=== PATIENT | female | born 1965 | race African-American/Black ===

== ENCOUNTER 2018-10-05 08:03 | Inpatient (IN) | payer OTHER ==
--- NOTE | 2018-10-05 09:14 | HP ---
CIWA Score - Admission Criteria [facility]ASAS Guidelines: Admission for Medically Managed Detox: Requires at least one of the followin. CIWA greater than 12 2. Seizures within the past 24 hours 3. Delirium tremens within the past 24 hours 4. Hallucinations within the past 24 hours 5. Acute intervention needed for co occurring medical disorder 6. Acute intervention needed for co occurring psychiatric disorder 7. Severe withdrawal that cannot be handled at a lower level of care (continued vomiting, continued diarrhea, abnormal vital signs) requiring intravenous medication and/or fluids 8. Admission ROS S - HPI Allergies/Adverse Reactions: Allergies Allergy/AdvReac Type Severity Reaction Status Date / Time No Known Allergies Allergy Verified 10/05/18 08:19 History of Present Illness: pt here requesting rehab from crack cocaine use , reports 30$ / day since age 20 , previous visit at this facility in 2014 for etoh detox . current etoh use 1 pint /month , 3 cans / beer / month , denies cannabis use . tobacco : 1/2 ppd PMHX : htn , states had high BP went to [facility], no meds pshx : denies psych : denies meds : lisinopril 20 mg Exam Limitations: No Limitations - Ebola screening Have you traveled outside of the country in the last 21 days: No (N) Have you had contact with anyone from an Ebola affected area: No Do you have a fever: No - Review of Systems Constitutional: No Symptoms Reported, Other (fatigue) EENT: reports: Blurred Vision, Other (denies vision loss , reports intermittent blurriness) Respiratory: reports: No Symptoms reported Cardiac: reports: No Symptoms Reported GI: reports: No Symptoms Reported : reports: No Symptoms Reported Musculoskeletal: reports: No Symptoms Reported Neuro: reports: No Symptoms reported Endocrine: reports: No Symptoms Reported Psychiatric: reports: Orientated x3 Patient History - Patient Medical History Hx Anemia: Yes (NOT CURRENTLY ON SUPPLEMENT) Hx Asthma: No Hx Chronic Obstructive Pulmonary Disease (COPD): No Hx Cancer: No Hx Cardiac Disorders: No Hx Congestive Heart Failure: No Hx Hypertension: Yes Hx Hypercholesterolemia: Yes (NOT CURRENTLY ON MED) Hx Pacemaker: No HX Cerebrovascular Accident: No Hx Seizures: No Hx Dementia: No Hx Diabetes: No Hx Gastrointestinal Disorders: No Hx Liver Disease: No Hx Genitourinary Disorders: No Hx Sexually Transmitted Disorders: No Hx Renal Disease (ESRD): No Hx Thyroid Disease: No Hx Human Immunodeficiency Virus (HIV): No (NEGATIVE HX) Hx Hepatitis C: No Hx Depression: No Hx Suicide Attempt: No Hx Bipolar Disorder: No Hx Schizophrenia: No - Patient Surgical History Past Surgical History: No - PPD History Date: 10/13/14 Results: 0 MM - Reproductive History Last Menstrual Period: 08/07/08 - Smoking Cessation Smoking history: Current every day smoker Have you smoked in the past 12 months: Yes Aproximately how many cigarettes per day: 3 Hx Chewing Tobacco Use: No Initiated information on smoking cessation: No - Substances abused Crack Substance route: Smoking Frequency: Daily Amount used: 3 bags Age of first use: 20 Date of last use: 10/04/18 Family Disease History - Family Disease History Family Disease History: Other: Mother (htn ,d. unknown cause ), Brother (3, A & W ), Sister (6 , A & W ) Other Family History: no children Admission Physical Exam [facility] - Vital Signs Vital Signs: Vital Signs - 24 hr 10/05/18 08:12 Temperature 96.7 F L Pulse Rate 75 Respiratory 20 Rate Blood Pressure 177/122 H - Physical General Appearance: Yes: No Apparent Distress HEENTM: Yes: EOMI, Hearing grossly Normal, Normocephalic, Normal Voice, Other ( poor dentition , many missing teeth) Respiratory: Yes: Chest Non-Tender, Lungs Clear, Normal Breath Sounds Neck: Yes: No masses,lesions,Nodules, Trachea in good position Cardiology: Yes: Regular Rhythm, Regular Rate, S1, S2 Abdominal: Yes: Non Tender, Soft Back: Yes: Normal Inspection Musculoskeletal: Yes: full range of Motion, Gait Steady Extremities: Yes: Normal Range of Motion, Non-Tender Neurological: Yes: Fully Oriented, Alert, Normal Mood/Affect, Normal Response, Other (4/5 left UE strength states had cva in the past) Integumentary: Yes: Normal Color, Warm - Diagnostic (1) Cocaine dependence Current Visit: Yes Status: Chronic Qualifiers: Substance use status: uncomplicated Qualified Code(s): F14.20 - Cocaine dependence, uncomplicated (2) Nicotine dependence Current Visit: Yes Status: Chronic Qualifiers: Nicotine product type: cigarettes Inpatient Rehab Admission - Rehab Decision to Admit Inpatient rehab admission?: Yes - Initial Determination Are CD services needed?: Yes Free of communicable disease: Yes Not in need of hospitalization: Yes - Rehab Admission Criteria Previous failed treatment: No Poor recovery environment: Yes Comorbidities: No Lacks judgement: Yes Patient is meeting Inpatient Rehab admission criteria:: Yes
[2018-10-05] MEDS ORDERED: MENTHOL/PHENOL 1 EACH UD MM PRN (09:19)
[2018-10-05] MEDS ORDERED: IBUPROFEN 400 MG TABLET (FP) PO PRN (09:19)
[2018-10-05] MEDS ORDERED: guaiFENesin 200 MG/10 ML 10 ML UNIT-DOSE CUPS PO PRN (09:19)
[2018-10-05] MEDS ORDERED: ACETAMINOPHEN 325 MG TABLET (FP) PO PRN (09:19)
[2018-10-05] MEDS ORDERED: MAGNESIUM HYDROX 2400MG/30ML ORAL SUSPENSION 30 ML CUP PO PRN (09:19)
[2018-10-05] MEDS ORDERED: MAGNESIUM CITRATE 300 ML BOTTLE PO PRN (09:19)
[2018-10-05] MEDS ORDERED: P-EPHED 60MG/TRIPROLIDI 2.5MG TABLET PO PRN (09:19)
[2018-10-05] MEDS ORDERED: NICOTINE POLACRILEX 2 MG GUM BUC PRN (09:19)
[2018-10-05] MEDS ORDERED: LISINOPRIL 20 MG TABLET (FP) PO SCH (10:45)
[2018-10-05] MEDS: ASPIRIN COATED 81 MG TABLET.EC PO SCH (10:46)
[2018-10-05] MEDS: PRENATAL VITAMINS W/ FOLIC ACID TABLET (FP) PO SCH (10:46)
[2018-10-05 12:15] LABS: HEMATOCRIT 44.6 % (32.4-45.2); HEMOGLOBIN 14.6 GM/dL (10.7-15.3); MCH 29.3 pg (25.7-33.7); MCHC 32.8 g/dl (32.0-36.0); MEAN CELL VOLUME 89.2 fl (80-96); MEAN PLT VOLUME 8.5 fl (7.5-11.1); PLATELET COUNT 317 K/MM3 (134-434); RDW 13.9 % (11.6-15.6)
[2018-10-05 12:29] LABS: ALBUMIN 3.9 g/dl (3.4-5.0); BILIRUBIN,TOTAL 0.2 mg/dL (0.2-1); CALCIUM 9.1 mg/dL (8.5-10.1); CREATININE 0.7 mg/dL (0.55-1.3); POTASSIUM 3.9 mmol/L (3.5-5.1); TOT PROT 7.3 g/dl (6.4-8.2)
[2018-10-05] MEDS: THIAMINE HCL 100 MG TABLET (FP) PO SCH (21:56)
[2018-10-05] MEDS: MAG HYDROX/AL HYDROX/SIMETH 30 ML UNIT-DOSE CUP PO PRN (21:57)
[2018-10-05] MEDS ORDERED: MELATONIN 5 MG TABLETS PO PRN (22:00)
[2018-10-06] MEDS: MAG HYDROX/AL HYDROX/SIMETH 30 ML UNIT-DOSE CUP PO PRN ×2 (06:26→23:15)
[2018-10-06] MEDS ORDERED: amLODIPine BESYLATE 10 MG TABLET (FP) PO ONE (07:00)
--- NOTE | 2018-10-06 08:28 | PN ---
[facility] Progress Note Note: 0645 SEEN FOR C/O ASYMPTOMATIC ELEVATED B/P PER CLIENT SHE DOES NOT TAKE LISINOPRIL SHE IS ON AMLODIPINE 10 MG DAILY. 0- Vital Signs - 24 hr 10/05/18 10/05/18 10/05/18 09:05 11:05 12:27 Temperature 96.7 F L 98.1 F Pulse Rate 75 84 84 Respiratory 20 18 Rate Blood Pressure 177/122 H 170/113 H 176/119 H 10/05/18 10/05/18 10/06/18 13:39 23:12 00:30 Temperature Pulse Rate 76 76 Respiratory 18 17 Rate Blood Pressure 133/82 121/76 10/06/18 10/06/18 04:59 06:58 Temperature 97.9 F Pulse Rate 78 Respiratory 18 18 Rate Blood Pressure 182/139 H Laboratory Tests 10/05/18 10/05/18 10/05/18 09:23 09:30 09:30 WBC 4.0 RBC 5.00 Hgb 14.6 Hct 44.6 MCV 89.2 MCH 29.3 MCHC 32.8 RDW 13.9 Plt Count 317 MPV 8.5 Sodium 143 Potassium 3.9 Chloride 106 Carbon Dioxide 31 Anion Gap 6 L BUN 13 Creatinine 0.7 Est GFR (CKD-EPI)AfAm 115.45 Est GFR (CKD-EPI)NonAf 99.62 Random Glucose 64 L Calcium 9.1 Total Bilirubin 0.2 AST 10 L ALT 19 Alkaline Phosphatase 72 Total Protein 7.3 Albumin 3.9 POC Urine HCG, Qual Negative RPR Titer 10/05/18 09:30 WBC RBC Hgb Hct MCV MCH MCHC RDW Plt Count MPV Sodium Potassium Chloride Carbon Dioxide Anion Gap BUN Creatinine Est GFR (CKD-EPI)AfAm Est GFR (CKD-EPI)NonAf Random Glucose Calcium Total Bilirubin AST ALT Alkaline Phosphatase Total Protein Albumin POC Urine HCG, Qual RPR Titer Nonreactive A- HTN P- DC LISINOPRIL START AMLODIPINE 10 MG DAILY FIRST DOSE NOW
[2018-10-06] MEDS: PRENATAL VITAMINS W/ FOLIC ACID TABLET (FP) PO SCH (09:51)
[2018-10-06] MEDS: ASPIRIN COATED 81 MG TABLET.EC PO SCH (09:51)
[2018-10-06] MEDS ORDERED: cloNIDine HCL 0.1 MG TABLET PO STA (10:48)
--- NOTE | 2018-10-06 11:42 | PN ---
[facility] Progress Note (SOAP) Subjective: Elevated bp of 162/108, HR 92. Pt denies any headache, chest pain, sob, palpitations, or N/V. Objective: 10/06/18 11:39 Vital Signs 10/06/18 10/06/18 10/06/18 04:59 06:58 10:00 Temperature 97.9 F Pulse Rate 78 92 H Respiratory 18 18 Rate Blood Pressure 182/139 H 155/107 H Normal s1 s2, no murmur, or gallop Assessment: 10/06/18 11:42 Elevated BP pt is AOX3, in no acute distress Plan: clonidine 0.1mg po once, stat. recheck BP in an hour after clonidine administration. monitor BP as ordered.
[2018-10-06 12:12] LABS: EPI CELLS 19.4 /HPF (0-5/HPF); HYALINE CASTS 3 /lpf (0-8); PH,URINE 8.5 (5.0-8.0); URINE APPEARANCE CLOUDY; URINE BACTERIA 130.2 /hpf (NEGATIVE); URINE BILIRUBIN NEGATIVE (NEGATIVE); URINE COLOR YELLOW; URINE GLUCOSE (UA) NEGATIVE (NEGATIVE); URINE KETONE NEGATIVE (NEGATIVE); URINE LEUK ESTERASE 1+ (NEGATIVE); URINE NITRITE NEGATIVE (NEGATIVE); URINE PROTEIN NEGATIVE (NEGATIVE); URINE RBC 1 /hpf (0-4); URINE UROBILINOGEN 0.2 mg/dL (0.2-1.0); URINE WBC 5 /hpf (0-5)
--- NOTE | 2018-10-06 14:44 | PN ---
S Progress Note Note: Pt's repeat BP is 155/101, HR is 88. Enalapril 10mg po twice/day added to pt's treatment regimen. Enalapril 10mg po first dose now. CHRYSTAL Mao made aware.
[2018-10-06] MEDS: ENALAPRIL MALEATE 10 MG TABLET (FP) PO SCH ×2 (15:57→22:25)
[2018-10-06] MEDS: THIAMINE HCL 100 MG TABLET (FP) PO SCH (22:25)
[2018-10-06] MEDS ORDERED: PT OWN MED DRAWER 7, Y5N ONE (23:22)
[2018-10-07 06:51] VITALS: TEMP 97.8
[2018-10-07] MEDS ORDERED: PT OWN MED DRAWER 7, Y5N ONE (08:30)
[2018-10-07] MEDS ORDERED: amLODIPine BESYLATE 10 MG TABLET (FP) PO SCH (10:00)
[2018-10-07] MEDS: ENALAPRIL MALEATE 10 MG TABLET (FP) PO SCH (10:31)
[2018-10-07] MEDS: PRENATAL VITAMINS W/ FOLIC ACID TABLET (FP) PO SCH (10:31)
[2018-10-07] MEDS: ASPIRIN COATED 81 MG TABLET.EC PO SCH (10:31)
--- NOTE | 2018-10-07 12:38 | PN ---
S Progress Note Note: Patient has chronic b\hypertension, currently on combination therapy with with BPs still not optimal. She has received STAT doses of clonidine in the past, she is asymptomatic. Plan-Clonidine 01.mg PO BID ordered.
[2018-10-07] MEDS ORDERED: cloNIDine HCL 0.1 MG TABLET PO SCH (12:45)
[2018-10-07 15:46] VITALS: BP 139/82; PULSE 80
--- NOTE | 2018-10-07 19:56 | PN ---
S Progress Note Note: [facility] *LIVE* Discharge Summary Patient Name: NEFTALI DELGADO Date of : 65 Patient Status: Inpatient Attending Provider: Isabell Elliott Date: 10/07/18 19:55 Initialization Date: 10/07/18 19:55 [facility] Detox Discharge Summary Admission Date: 10/05/18 Discharge Date: 10/07/18 - History Pertinent Past History: HLD, HTN - Physical Exam Results Vital Signs: Vital Signs Temperature 97.8 F 10/07/18 06:50 Pulse Rate 80 10/07/18 15:15 Respiratory Rate 18 10/07/18 15:15 Blood Pressure 139/82 10/07/18 15:15 O2 Sat by Pulse Oximetry (%) - Medication Discharge Medications: Ambulatory Orders Lisinopril 20 mg PO DAILY 10/05/18 - AMA Did Patient Leave Against Medical Advice: Yes
== END 2018-10-07 20:00 | disposition left against medical advice (07) | DRG 770 ==
LOC: YASAS 08:03 → Y3E 10:15
PROVIDERS: ADMIT Neuromusculoskeletal Medicine & OMM; ATTEND Neuromusculoskeletal Medicine & OMM
PROC: HZ42ZZZ Group Counseling for Substance Abuse Treatment, Cognitive-Behavioral (ICD-10-PCS; principal; 2018-10-05)
DX: F14.20 Cocaine dependence, uncomplicated (principal); F17.210 Nicotine dependence, cigarettes, uncomplicated; I10 Essential (primary) hypertension; D64.9 Anemia, unspecified; E78.00 Pure hypercholesterolemia, unspecified
CPT/HCPCS: 36415; 80053; 81003; 81025; 85027; 86593; J0735